=== PATIENT | male | born 1965 | race Hispanic/Latino ===

== ENCOUNTER 2018-07-28 18:47 | Outpatient (CLI) | payer OTHER | END 2018-07-28 18:48 | disposition home or self-care (01) | LOC: C.SLEEP 18:48 ==

== ENCOUNTER 2018-09-08 18:47 | Outpatient (CLI) | payer OTHER | END 2018-09-08 18:48 | disposition home or self-care (01) | LOC: C.SLEEP 18:48 | DX: G47.33 Obstructive sleep apnea (adult) (pediatric) (principal) ==